=== PATIENT | female | born 1930 | race African-American/Black ===

== ENCOUNTER 2021-03-11 12:41 | Observation (INO) ==
[2021-03-11 13:17] LABS: Basophils % 0.5 % (0.0-0.8); Eosinophils # 0.2 10*3/uL (0.0-0.87); Eosinophils % 2.4 % (0.00-10.9); Hematocrit 30.5 VOL% (35.7-47.0); Hemoglobin 9.4 GM/DL (12.0-16.0); Immature Granulocytes % 0.5 %; Immature Granulocytes Absolute 0.04 #; Lymphocytes # 1.6 10*3/uL (1.4-4.0); Lymphocytes % 18.7 % (21.3-54.2); Mean Corpuscular HGB Conc 30.8 GM/DL (32-36); Mean Platelet Volume 9.9 FL (9.6-12.0); Neutrophils % 70.9 % (38.7-73.9); Platelet Count 246 T/CUMM (130-400); Red Blood Count 3.35 MC/CUMM (3.8-5.5); Red Cell Distribution Width 12.9 % (9.3-17.3); White Blood Count 8.6 T/CUMM (4-12)
[2021-03-11 13:38] LABS: Calcium 6.9 MG/DL (8.5-10.1); Potassium 3.5 MMOL/L (3.5-5.1)
[2021-03-11] MEDS ORDERED: DEXTROSE 50% 25 GM/50 ML VIAL IV PRN (15:52)
[2021-03-11] MEDS ORDERED: GLUCAGON 1 MG VIAL IM PRN (15:52)
[2021-03-11] MEDS: HEPARIN 5,000 UNIT/1 ML VIAL SUBCUT SCH (16:45)
[2021-03-11] MEDS: SODIUM CHLORIDE 0.9% 1,000 ML IV SCH (16:45)
[2021-03-12] MEDS: HEPARIN 5,000 UNIT/1 ML VIAL SUBCUT SCH (04:07)
[2021-03-12 05:04] LABS: Basophils % 0.4 % (0.0-0.8); Eosinophils # 0.2 10*3/uL (0.0-0.87); Eosinophils % 2.9 % (0.00-10.9); Hematocrit 28.6 VOL% (35.7-47.0); Immature Granulocytes % 0.3 %; Immature Granulocytes Absolute 0.02 #; Lymphocytes # 1.7 10*3/uL (1.4-4.0); Lymphocytes % 24.9 % (21.3-54.2); Mean Corpuscular HGB Conc 31.5 GM/DL (32-36); Mean Corpuscular Volume 91.7 FL (87-102); Mean Platelet Volume 10.6 FL (9.6-12.0); Neutrophils % 62.5 % (38.7-73.9); Platelet Count 232 T/CUMM (130-400); Red Blood Count 3.12 MC/CUMM (3.8-5.5); Red Cell Distribution Width 13.1 % (9.3-17.3); White Blood Count 6.8 T/CUMM (4-12)
[2021-03-12 05:26] LABS: Calcium 7.2 MG/DL (8.5-10.1); Osmolality,Calculated 310.7 MOS/KG (273-304); Potassium 3.3 MMOL/L (3.5-5.1)
[2021-03-12 05:28] LABS: Risk Ratio 2.45; VLDL CHOLESTEROL 20.8 MG/DL
[2021-03-12] MEDS: SODIUM CHLORIDE 0.9% 1,000 ML IV SCH ×2 (05:31→09:00)
[2021-03-12] MEDS ORDERED: POTASSIUM CHLORIDE 20 MEQ/15 ML UDCUP PO ONE ×2 (08:19→08:21)
[2021-03-12] MEDS ORDERED: ASPIRIN EC 81 MG TABLET PO SCH (09:00)
[2021-03-12] MEDS ORDERED: amLODIPine 10 MG TABLET PO SCH (09:00)
[2021-03-12 12:19] VITALS: BP 145/70
== END 2021-03-12 14:22 | disposition hospice, home (50) ==
LOC: N.ED 12:41 → N.EDINP 12:41 → SUATTDRO 14:39 → N.TELES 17:59
PROVIDERS: ADMIT Hospitalist; ATTEND Internal Medicine

== ENCOUNTER 2021-06-30 19:27 | Inpatient (IN) ==
[2021-06-30] MEDS ORDERED: FUROSEMIDE 40 MG/4 ML VIAL IV STA (19:49)
[2021-06-30] MEDS ORDERED: DEXAMETHASONE 4 MG/1 ML VIAL IM STA (19:49)
[2021-06-30] MEDS ORDERED: ONDANSETRON 4 MG/2 ML VIAL IV STA (19:49)
[2021-06-30] MEDS ORDERED: PIPERACILLIN/TAZOBACTAM 3,375 MG in SODIUM CHLORIDE 0.9% 100 ML IV STA (19:49)
[2021-06-30 21:00] LABS: Hematocrit 25.3 VOL% (35.7-47.0); Hemoglobin 8.1 GM/DL (12.0-16.0); Immature Granulocytes % 0.8 %; Immature Granulocytes Absolute 0.05 #; Lymphocytes # 0.9 10*3/uL (1.4-4.0); Lymphocytes % 13.8 % (21.3-54.2); Mean Corpuscular Volume 87.5 FL (87-102); Mean Platelet Volume 11.3 FL (9.6-12.0); Monocytes % 5.9 % (1.7-12.7); Neutrophils % 79.5 % (38.7-73.9); Platelet Count 189 T/CUMM (130-400); Red Blood Count 2.89 MC/CUMM (3.8-5.5); Red Cell Distribution Width 13.2 % (9.3-17.3); White Blood Count 6.2 T/CUMM (4-12)
[2021-06-30 21:23] LABS: Alanine Aminotransferase 11 U/L (13-56); Albumin 2.6 G/DL (3.4-5.0); Alkaline Phosphatase 74 U/L (45-117); Aspartate Amino Transferase 31 U/L (0-37); Bilirubin,Total < 0.39 MG/DL (0.20-1.00); Blood Urea Nitrogen 118 MG/DL (7-18); Calcium 5.9 MG/DL (8.5-10.1); Carbon Dioxide 17 MMOL/L (21-32); Estimated Glom Filtration Rate 5 ML/MIN; Glucose 450 MG/DL (74-106); Osmolality,Calculated 312.2 MOS/KG (273-304); Sodium 127 MMOL/L (136-145); Total Protein 6.8 G/DL (6.4-8.2)
[2021-06-30 21:32] LABS: Bacteria,Urine Many /HPF (Few); Bilirubin,Urine Negative (Negative); Blood, Urine Small mg/dL (Negative); Glucose,Urine (UA) 150 mg/dL (Negative); Ketones,Urine Negative (Negative); Mucus,Urine Occasional /LPF (Occasional); Nitrite,Urine Negative (Negative); Protein,Urine >=500 MG/DL; Squamous Epithelial Cell,Urine Occasional /HPF (0-10); Urine Appearance CLOUDY (Clear); Urine Color Amber (Yellow); Urine Specific Gravity 1.015 (1.001-1.035); Urine Urobilinogen < 2.0 EU/DL (0.2-1.0)
[2021-06-30 21:34] LABS: PT Patient Result 11.1 SECS (10.5-12.0)
[2021-07-01] MEDS ORDERED: ACETAMINOPHEN 325 MG TABLET PO PRN (00:32)
[2021-07-01] MEDS ORDERED: DEXTROSE 50% 25 GM/50 ML VIAL IV PRN ×2 (00:32)
[2021-07-01] MEDS ORDERED: GLUCAGON 1 MG VIAL IM PRN (00:32)
[2021-07-01] MEDS ORDERED: hydrALAZINE 20 MG/1 ML VIAL IV PRN (00:32)
[2021-07-01] MEDS ORDERED: INSULIN REGULAR 100 UNIT/ML SUBCUT STA (00:57)
[2021-07-01] MEDS ORDERED: MAGNESIUM SULF RIDER 2 GM/50 ML PREMIX IV ONE (02:00)
[2021-07-01] MEDS ORDERED: AZITHROMYCIN INJ 500 MG in SODIUM CHLORIDE 0.9% 250 ML IV ONE (02:00)
[2021-07-01] MEDS: HEPARIN 5,000 UNIT/1 ML VIAL SUBCUT SCH ×2 (05:17→16:22)
[2021-07-01] MEDS: cefTRIAXone 1,000 MG in SODIUM CHLORIDE 0.9% 100 ML IV SCH (05:17)
[2021-07-01 07:12] LABS: Hematocrit 27.7 VOL% (35.7-47.0); Hemoglobin 8.5 GM/DL (12.0-16.0); Immature Granulocytes % 0.7 %; Immature Granulocytes Absolute 0.03 #; Lymphocytes # 0.7 10*3/uL (1.4-4.0); Lymphocytes % 16.1 % (21.3-54.2); Mean Corpuscular HGB Conc 30.7 GM/DL (32-36); Mean Corpuscular Volume 90.8 FL (87-102); Mean Platelet Volume 11.9 FL (9.6-12.0); Monocytes % 3.2 % (1.7-12.7); Platelet Count 158 T/CUMM (130-400); Red Blood Count 3.05 MC/CUMM (3.8-5.5); Red Cell Distribution Width 13.4 % (9.3-17.3); White Blood Count 4.4 T/CUMM (4-12)
[2021-07-01 07:48] LABS: Alanine Aminotransferase 13 U/L (13-56); Albumin 2.3 G/DL (3.4-5.0); Alkaline Phosphatase 64 U/L (45-117); Aspartate Amino Transferase 27 U/L (0-37); Bilirubin,Total < 0.39 MG/DL (0.20-1.00); Blood Urea Nitrogen 116 MG/DL (7-18); Calcium 6.4 MG/DL (8.5-10.1); Carbon Dioxide 16 MMOL/L (21-32); Estimated Glom Filtration Rate 4 ML/MIN; Glucose 335 MG/DL (74-106); Osmolality,Calculated 304.2 MOS/KG (273-304); Potassium 4.7 MMOL/L (3.5-5.1); Sodium 127 MMOL/L (136-145)
[2021-07-01] MEDS: INSULIN REGULAR 100 UNIT/ML SUBCUT SCH ×4 (08:12→20:00)
[2021-07-01] MEDS: DEXAMETHASONE 4 MG/1 ML VIAL IV SCH (08:12)
[2021-07-01] MEDS: CHOLECALCIFEROL 1,000 UNIT TABLET PO SCH (08:12)
[2021-07-01] MEDS: FAMOTIDINE 20 MG TABLET PO SCH (08:13)
[2021-07-01] MEDS: ASCORBIC ACID 500 MG TABLET PO SCH ×2 (08:13→20:00)
[2021-07-01] MEDS: CETIRIZINE 10 MG TABLET PO SCH (08:13)
[2021-07-01] MEDS: ZINC GLUCONATE 50 MG TABLET PO SCH (08:13)
[2021-07-01] MEDS: SODIUM BICARBONATE 650 MG TABLET PO SCH ×2 (08:13→20:00)
[2021-07-01] MEDS ORDERED: CALCIUM (CARBONATE) 600 MG TABLET PO SCH (09:00)
[2021-07-01] MEDS: CALCIUM (CARBONATE) 500 MG TABLET PO SCH ×2 (09:26→20:00)
[2021-07-01] MEDS: INSULIN GLARGINE 100 UNIT/ML SUBCUT SCH (20:00)
[2021-07-02] MEDS: HEPARIN 5,000 UNIT/1 ML VIAL SUBCUT SCH ×3 (00:09→16:50)
[2021-07-02] MEDS: MELATONIN 3 MG TABLET PO PRN ×2 (00:09→20:00)
[2021-07-02] MEDS: cefTRIAXone 1,000 MG in SODIUM CHLORIDE 0.9% 100 ML IV SCH (05:05)
[2021-07-02] MEDS: INSULIN REGULAR 100 UNIT/ML SUBCUT SCH ×4 (07:51→20:00)
[2021-07-02] MEDS: AZITHROMYCIN 250 MG TABLET PO SCH (08:37)
[2021-07-02] MEDS: SODIUM BICARBONATE 650 MG TABLET PO SCH ×2 (08:37→20:00)
[2021-07-02] MEDS: FAMOTIDINE 20 MG TABLET PO SCH (08:37)
[2021-07-02] MEDS: CHOLECALCIFEROL 1,000 UNIT TABLET PO SCH (08:37)
[2021-07-02] MEDS: CETIRIZINE 10 MG TABLET PO SCH (08:37)
[2021-07-02] MEDS: ASCORBIC ACID 500 MG TABLET PO SCH ×2 (08:37→20:00)
[2021-07-02] MEDS: ZINC GLUCONATE 50 MG TABLET PO SCH (08:37)
[2021-07-02] MEDS: CALCIUM (CARBONATE) 500 MG TABLET PO SCH ×2 (08:38→20:00)
[2021-07-02] MEDS: DEXAMETHASONE 4 MG/1 ML VIAL IV SCH (08:40)
[2021-07-02 14:18] LABS: Hematocrit 28.8 VOL% (35.7-47.0); Hemoglobin 9.4 GM/DL (12.0-16.0)
[2021-07-02 14:45] LABS: Calcium 6.1 MG/DL (8.5-10.1); Osmolality,Calculated 302.9 MOS/KG (273-304); Potassium 4.8 MMOL/L (3.5-5.1)
[2021-07-02] MEDS: INSULIN GLARGINE 100 UNIT/ML SUBCUT SCH (20:00)
[2021-07-03] MEDS: HEPARIN 5,000 UNIT/1 ML VIAL SUBCUT SCH ×3 (00:12→17:51)
[2021-07-03] MEDS: cefTRIAXone 1,000 MG in SODIUM CHLORIDE 0.9% 100 ML IV SCH (05:30)
[2021-07-03 05:54] LABS: Hemoglobin 9.6 GM/DL (12.0-16.0); Immature Granulocytes Absolute 0.07 #; Lymphocytes # 0.9 10*3/uL (1.4-4.0); Lymphocytes % 12.9 % (21.3-54.2); Mean Corpuscular HGB Conc 33.1 GM/DL (32-36); Mean Corpuscular Volume 84.3 FL (87-102); Monocytes % 10.1 % (1.7-12.7); Platelet Count 284 T/CUMM (130-400); Red Blood Count 3.44 MC/CUMM (3.8-5.5); Red Cell Distribution Width 12.9 % (9.3-17.3); White Blood Count 7.1 T/CUMM (4-12)
[2021-07-03 06:20] LABS: Alanine Aminotransferase 12 U/L (13-56); Albumin 2.2 G/DL (3.4-5.0); Alkaline Phosphatase 75 U/L (45-117); Aspartate Amino Transferase 26 U/L (0-37); Bilirubin,Total < 0.39 MG/DL (0.20-1.00); Blood Urea Nitrogen 150 MG/DL (7-18); Calcium 6.1 MG/DL (8.5-10.1); Carbon Dioxide 15 MMOL/L (21-32); Estimated Glom Filtration Rate 4 ML/MIN; Glucose 229 MG/DL (74-106); Osmolality,Calculated 313.9 MOS/KG (273-304); Potassium 4.7 MMOL/L (3.5-5.1); Sodium 129 MMOL/L (136-145)
[2021-07-03] MEDS: AZITHROMYCIN 250 MG TABLET PO SCH (08:28)
[2021-07-03] MEDS: FAMOTIDINE 20 MG TABLET PO SCH (08:28)
[2021-07-03] MEDS: ZINC GLUCONATE 50 MG TABLET PO SCH (08:28)
[2021-07-03] MEDS: CHOLECALCIFEROL 1,000 UNIT TABLET PO SCH (08:28)
[2021-07-03] MEDS: SODIUM BICARBONATE 650 MG TABLET PO SCH ×2 (08:28→20:35)
[2021-07-03] MEDS: ASCORBIC ACID 500 MG TABLET PO SCH ×2 (08:28→20:34)
[2021-07-03] MEDS: CETIRIZINE 10 MG TABLET PO SCH (08:29)
[2021-07-03] MEDS: CALCIUM (CARBONATE) 500 MG TABLET PO SCH ×2 (08:29→20:34)
[2021-07-03] MEDS: INSULIN REGULAR 100 UNIT/ML SUBCUT SCH ×4 (08:29→20:25)
[2021-07-03] MEDS: DEXAMETHASONE 4 MG/1 ML VIAL IV SCH (08:29)
[2021-07-03] MEDS: MELATONIN 3 MG TABLET PO PRN (20:30)
[2021-07-03] MEDS: INSULIN GLARGINE 100 UNIT/ML SUBCUT SCH (20:34)
[2021-07-04] MEDS: HEPARIN 5,000 UNIT/1 ML VIAL SUBCUT SCH ×4 (01:02→17:42)
[2021-07-04 05:10] LABS: Basophils % 0.2 % (0.0-0.8); Hematocrit 30.9 VOL% (35.7-47.0); Hemoglobin 10.5 GM/DL (12.0-16.0); Immature Granulocytes % 1.4 %; Immature Granulocytes Absolute 0.17 #; Lymphocytes # 1.1 10*3/uL (1.4-4.0); Lymphocytes % 9.4 % (21.3-54.2); Mean Corpuscular Volume 83.7 FL (87-102); Mean Platelet Volume 10.8 FL (9.6-12.0); Monocytes % 8.7 % (1.7-12.7); Neutrophils % 80.3 % (38.7-73.9); Platelet Count 312 T/CUMM (130-400); Red Blood Count 3.69 MC/CUMM (3.8-5.5); Red Cell Distribution Width 13.1 % (9.3-17.3)
[2021-07-04] MEDS: cefTRIAXone 1,000 MG in SODIUM CHLORIDE 0.9% 100 ML IV SCH (05:14)
[2021-07-04 05:38] LABS: Albumin 2.2 G/DL (3.4-5.0); Bilirubin,Total 0.6 MG/DL (0.20-1.00); Calcium 6.5 MG/DL (8.5-10.1); Osmolality,Calculated 302.2 MOS/KG (273-304); Potassium 4.7 MMOL/L (3.5-5.1); Total Protein 7.6 G/DL (6.4-8.2)
[2021-07-04] MEDS: ASCORBIC ACID 500 MG TABLET PO SCH ×2 (08:30→20:19)
[2021-07-04] MEDS: CALCIUM (CARBONATE) 500 MG TABLET PO SCH ×2 (08:30→20:19)
[2021-07-04] MEDS: AZITHROMYCIN 250 MG TABLET PO SCH (08:30)
[2021-07-04] MEDS: SODIUM BICARBONATE 650 MG TABLET PO SCH ×2 (08:30→20:19)
[2021-07-04] MEDS: CHOLECALCIFEROL 1,000 UNIT TABLET PO SCH (08:30)
[2021-07-04] MEDS: DEXAMETHASONE 4 MG/1 ML VIAL IV SCH (08:30)
[2021-07-04] MEDS: FAMOTIDINE 20 MG TABLET PO SCH (08:30)
[2021-07-04] MEDS: ZINC GLUCONATE 50 MG TABLET PO SCH (08:30)
[2021-07-04] MEDS: CETIRIZINE 10 MG TABLET PO SCH (08:31)
[2021-07-04] MEDS: INSULIN REGULAR 100 UNIT/ML SUBCUT SCH ×4 (08:36→20:19)
[2021-07-04] MEDS: INSULIN GLARGINE 100 UNIT/ML SUBCUT SCH (20:18)
[2021-07-05] MEDS: HEPARIN 5,000 UNIT/1 ML VIAL SUBCUT SCH ×3 (01:27→17:08)
[2021-07-05] MEDS: cefTRIAXone 1,000 MG in SODIUM CHLORIDE 0.9% 100 ML IV SCH (05:20)
[2021-07-05] MEDS: INSULIN REGULAR 100 UNIT/ML SUBCUT SCH ×4 (07:41→21:36)
[2021-07-05] MEDS: DEXAMETHASONE 4 MG/1 ML VIAL IV SCH (08:30)
[2021-07-05] MEDS: SODIUM BICARBONATE 650 MG TABLET PO SCH ×2 (08:31→21:36)
[2021-07-05] MEDS: ASCORBIC ACID 500 MG TABLET PO SCH ×2 (08:31→21:36)
[2021-07-05] MEDS: CALCIUM (CARBONATE) 500 MG TABLET PO SCH ×2 (08:31→21:36)
[2021-07-05] MEDS: CHOLECALCIFEROL 1,000 UNIT TABLET PO SCH (08:31)
[2021-07-05] MEDS: FAMOTIDINE 20 MG TABLET PO SCH (08:31)
[2021-07-05] MEDS: ZINC GLUCONATE 50 MG TABLET PO SCH (08:31)
[2021-07-05] MEDS: AZITHROMYCIN 250 MG TABLET PO SCH (08:39)
[2021-07-05] MEDS: CETIRIZINE 10 MG TABLET PO SCH (08:39)
[2021-07-05] MEDS: INSULIN GLARGINE 100 UNIT/ML SUBCUT SCH (21:35)
[2021-07-06] MEDS: HEPARIN 5,000 UNIT/1 ML VIAL SUBCUT SCH ×3 (00:16→17:11)
[2021-07-06] MEDS: cefTRIAXone 1,000 MG in SODIUM CHLORIDE 0.9% 100 ML IV SCH (05:29)
[2021-07-06 06:01] LABS: Basophils % 0.2 % (0.0-0.8); Hematocrit 28.1 VOL% (35.7-47.0); Hemoglobin 9.3 GM/DL (12.0-16.0); Immature Granulocytes % 2.4 %; Immature Granulocytes Absolute 0.44 #; Lymphocytes % 5.6 % (21.3-54.2); Mean Corpuscular HGB Conc 33.1 GM/DL (32-36); Mean Corpuscular Volume 87.5 FL (87-102); Mean Platelet Volume 11.3 FL (9.6-12.0); Monocytes % 3.8 % (1.7-12.7); Platelet Count 289 T/CUMM (130-400); Red Blood Count 3.21 MC/CUMM (3.8-5.5); Red Cell Distribution Width 13.6 % (9.3-17.3)
[2021-07-06 06:10] LABS: Calcium 6.7 MG/DL (8.5-10.1); Osmolality,Calculated 325.8 MOS/KG (273-304); Potassium 5.7 MMOL/L (3.5-5.1)
[2021-07-06 06:57] LABS: Band Neutrophils 1 % (0-10); Lymphocytes 8 % (20-55); Segmented Neutrophils 87 % (50-85); Total Cells Counted 100
[2021-07-06 06:58] LABS: Burr Cells 1+; Ovalocytes 1+; Platelet Estimate Normal
[2021-07-06 06:59] LABS: Hypochromasia Slight
[2021-07-06] MEDS: INSULIN REGULAR 100 UNIT/ML SUBCUT SCH ×4 (07:26→20:23)
[2021-07-06] MEDS: CALCIUM (CARBONATE) 500 MG TABLET PO SCH ×2 (09:17→20:22)
[2021-07-06] MEDS: CHOLECALCIFEROL 1,000 UNIT TABLET PO SCH (09:17)
[2021-07-06] MEDS: DEXAMETHASONE 4 MG/1 ML VIAL IV SCH (09:17)
[2021-07-06] MEDS: FAMOTIDINE 20 MG TABLET PO SCH (09:17)
[2021-07-06] MEDS: ZINC GLUCONATE 50 MG TABLET PO SCH (09:17)
[2021-07-06] MEDS: ASCORBIC ACID 500 MG TABLET PO SCH ×2 (09:17→20:22)
[2021-07-06] MEDS: CETIRIZINE 10 MG TABLET PO SCH (09:17)
[2021-07-06] MEDS: SODIUM BICARBONATE 650 MG TABLET PO SCH ×2 (09:17→20:22)
[2021-07-06] MEDS: INSULIN GLARGINE 100 UNIT/ML SUBCUT SCH (20:23)
[2021-07-07] MEDS: HEPARIN 5,000 UNIT/1 ML VIAL SUBCUT SCH ×3 (00:26→17:42)
[2021-07-07] MEDS: cefTRIAXone 1,000 MG in SODIUM CHLORIDE 0.9% 100 ML IV SCH (05:34)
[2021-07-07] MEDS: INSULIN REGULAR 100 UNIT/ML SUBCUT SCH ×5 (08:06→21:06)
[2021-07-07] MEDS: CALCIUM (CARBONATE) 500 MG TABLET PO SCH ×2 (08:32→21:07)
[2021-07-07] MEDS: DEXAMETHASONE 4 MG/1 ML VIAL IV SCH (08:32)
[2021-07-07] MEDS: SODIUM BICARBONATE 650 MG TABLET PO SCH ×2 (08:32→21:07)
[2021-07-07] MEDS: SODIUM ZIRCONIUM CYCLOSILICATE 10 GM PACK PO SCH (08:32)
[2021-07-07] MEDS: FAMOTIDINE 20 MG TABLET PO SCH (08:32)
[2021-07-07] MEDS: CHOLECALCIFEROL 1,000 UNIT TABLET PO SCH (08:33)
[2021-07-07] MEDS: ASCORBIC ACID 500 MG TABLET PO SCH ×2 (08:33→21:07)
[2021-07-07] MEDS: CETIRIZINE 10 MG TABLET PO SCH (08:36)
[2021-07-07] MEDS: ZINC GLUCONATE 50 MG TABLET PO SCH (08:36)
[2021-07-07] MEDS: INSULIN GLARGINE 100 UNIT/ML SUBCUT SCH (21:07)
[2021-07-08] MEDS: HEPARIN 5,000 UNIT/1 ML VIAL SUBCUT SCH ×2 (01:22→09:16)
[2021-07-08] MEDS: cefTRIAXone 1,000 MG in SODIUM CHLORIDE 0.9% 100 ML IV SCH (05:15)
[2021-07-08] MEDS: INSULIN REGULAR 100 UNIT/ML SUBCUT SCH ×2 (07:52→11:24)
[2021-07-08 08:26] VITALS: BP 126/75
[2021-07-08] MEDS: DEXAMETHASONE 4 MG/1 ML VIAL IV SCH (09:04)
[2021-07-08] MEDS: CETIRIZINE 10 MG TABLET PO SCH (09:06)
[2021-07-08] MEDS: FAMOTIDINE 20 MG TABLET PO SCH (09:06)
[2021-07-08] MEDS: ZINC GLUCONATE 50 MG TABLET PO SCH (09:07)
[2021-07-08] MEDS: CHOLECALCIFEROL 1,000 UNIT TABLET PO SCH (09:07)
[2021-07-08] MEDS: SODIUM BICARBONATE 650 MG TABLET PO SCH (09:07)
[2021-07-08] MEDS: SODIUM ZIRCONIUM CYCLOSILICATE 10 GM PACK PO SCH (09:08)
[2021-07-08] MEDS: CALCIUM (CARBONATE) 500 MG TABLET PO SCH (09:08)
[2021-07-08] MEDS: ASCORBIC ACID 500 MG TABLET PO SCH (09:08)
== END 2021-07-08 11:31 | disposition hospice, inpatient (51) | DRG 177 ==
LOC: EDBD → EDUNIT# → N.ED 19:27 → N.EDINP 07-01 00:32 → SUATTDRO 07-01 00:32 → N.2E 07-01 00:46
PROVIDERS: ADMIT Internal Medicine Geriatric Medicine; ATTEND Internal Medicine

== ENCOUNTER 2021-07-08 11:10 | Inpatient (IN) ==
[2021-07-08 12:29] VITALS: BP 172/78
[2021-07-08] MEDS ORDERED: LORazepam 2 MG/1 ML VIAL IV PRN (13:58)
[2021-07-08] MEDS ORDERED: MORPHINE 2 MG/1 ML SYRINGE IV PRN ×4 (14:06→15:30)
[2021-07-08] MEDS ORDERED: LORazepam 2 MG/1 ML VIAL ONE (14:32)
[2021-07-08] MEDS: LORazepam 2 MG/1 ML VIAL IV PRN ×2 (14:49→21:36)
[2021-07-09] MEDS: LORazepam 2 MG/1 ML VIAL IV PRN ×3 (04:18→19:35)
[2021-07-09] MEDS ORDERED: LORazepam 2 MG/1 ML VIAL ONE (11:00)
== END 2021-07-10 03:36 | disposition expired | DRG 951 ==
LOC: N.2E 11:10
PROVIDERS: ADMIT Internal Medicine; ATTEND Internal Medicine